=== PATIENT | female | born 1965 | race Asian ===

== ENCOUNTER 2019-10-27 21:56 | Emergency (ER) | payer BC ==
[2019-10-27 23:44] VITALS: BP 121/76
== END 2019-10-28 00:26 | disposition home or self-care (01) ==
LOC: ED 21:56
DX: S00.83XA Contusion of other part of head, initial encounter (principal); S20.219A Contusion of unspecified front wall of thorax, initial encounter; S60.212A Contusion of left wrist, initial encounter; I10 Essential (primary) hypertension; Y04.8XXA Assault by other bodily force, initial encounter; Y93.89 Activity, other specified; Y92.89 Other specified places as the place of occurrence of the external cause; Y99.8 Other external cause status
CPT/HCPCS: Q0092